=== PATIENT | female | born 1960 | race Caucasian/White ===

== ENCOUNTER 2018-12-08 07:25 | Outpatient (CLI) | payer BC ==
--- NOTE | 2018-12-08 08:39 | CT ---
CT Chest Abd Pelvis W Con HISTORY: Breast cancer diagnosed 2 weeks ago. Cancer staging. COMPARISON: None. FINDINGS: There are no pulmonary nodules identified there are some pleural-based parenchymal changes in the posterior portions of both upper lobes, this is appearance more suggestive of scarring along the fissures. No pleural effusions identified. No significant mediastinal, or hilar lymphadenopathy is seen. There are markedly enlarged right axill kim lymph nodes present. In addition there are a few small subcentimeter right supraclavicular nodes noted. CT of abdomen performed with contrast enhancement: The liver spleen pancreas and gallbla dder regions all appear unremarkable. Right and left adrenal glands and right and left kidneys are normal in size. Hypodensity involving th e lower pole the right kidney is most likely a cyst. There is no significant periaortic or mesenteric lymphadenopathy noted. CT of pelvis performed with contrast: There is no evidence of adenopathy, mass or free fluid. Osseous structures: There are no signs of any lytic or blastic bony changes. IMPRESSION: 1. Enlarged right axillary lymph nodes otherwise unremarkable examination.
== END 2018-12-08 07:26 | disposition home or self-care (01) ==
LOC: CT 07:25
PROVIDERS: ATTEND Surgery
DX: C77.9 Secondary and unspecified malignant neoplasm of lymph node, unspecified (principal); C80.1 Malignant (primary) neoplasm, unspecified; R59.0 Localized enlarged lymph nodes
CPT/HCPCS: 71260; 74177

== ENCOUNTER 2018-12-16 09:28 | Outpatient (CLI) | payer BC ==
--- NOTE | 2018-12-16 13:02 | NM ---
EXAM: Bone scan: Patient given 30 mCi of technetium labeled MDP IV. Whole body skeletal images obtained. INDICATIONS: Breast cancer COMPARISON: None. FINDINGS: Normal skeletal activity. No evidence of metastatic disease. IMPRESSION: Normal bone scan
== END 2018-12-16 09:29 | disposition home or self-care (01) ==
LOC: NM 09:28
PROVIDERS: ATTEND Surgery
DX: C77.9 Secondary and unspecified malignant neoplasm of lymph node, unspecified (principal); C80.1 Malignant (primary) neoplasm, unspecified
CPT/HCPCS: 36415; 78306; 80053; 82248; 83615; 84100; 84550; A9503

== ENCOUNTER 2018-12-21 13:41 | Outpatient (CLI) | payer BC | END 2018-12-21 13:42 | disposition home or self-care (01) | LOC: ULT 13:41 | PROVIDERS: ATTEND Internal Medicine Hematology & Oncology | DX: Z51.11 Encounter for antineoplastic chemotherapy (principal); C50.919 Malignant neoplasm of unspecified site of unspecified female breast; I08.1 Rheumatic disorders of both mitral and tricuspid valves; Z79.899 Other long term (current) drug therapy | CPT/HCPCS: 93306 ==

== ENCOUNTER 2018-12-22 07:33 | Outpatient (CLI) | payer BC ==
--- NOTE | 2018-12-22 15:04 | PET ---
EXAM: PET CT skull to mid thigh COMPARISON: CT chest abdomen pelvis 12/08/2018 HISTORY: Malignant neoplasm of the upper outer quadrant of right breast TECHNIQUE: A PET/CT was performed from the skull to the mid thigh after administration of 11.6 millic uries of F-18 FDG. Evaluation was performed on a [employer] workstation. FINDINGS: NECK: No areas of hypermetabolic activity CHEST: There are approximately 5 hypermetabolic lymph nodes in the right axilla and posterior to the pectoralis major muscle. Max SUV value is 5.0. These correspond to the enlarged lymph nodes seen on CT. No intrathoracic areas of hypermetabolic activity ABDOMEN/PELVIS: No areas of hypermetabolic activity SKELETON: No areas of hypermetabolic activity CT images used for attenuation correction show a Mediport with its tip in the superior vena cava.. IMPRESSION: Metastatic disease to the right axilla.
== END 2018-12-22 07:34 | disposition home or self-care (01) ==
LOC: PET 07:33
PROVIDERS: ATTEND Internal Medicine Hematology & Oncology
DX: C50.411 Malignant neoplasm of upper-outer quadrant of right female breast (principal); C76.1 Malignant neoplasm of thorax
CPT/HCPCS: 78815; A9552

== ENCOUNTER → 2021-04-17 | Outpatient (CLI) | payer BC | LOC: PET 09:30 | PROVIDERS: ATTEND Internal Medicine Hematology & Oncology | DX: C50.411 Malignant neoplasm of upper-outer quadrant of right female breast (principal); M89.9 Disorder of bone, unspecified | CPT/HCPCS: 78815; A9552 ==

== ENCOUNTER 2021-04-25 10:09 | Outpatient (CLI) | payer BC | END 2021-04-25 10:10 | disposition home or self-care (01) | LOC: NM 10:09 | PROVIDERS: ATTEND Internal Medicine Hematology & Oncology | DX: C50.411 Malignant neoplasm of upper-outer quadrant of right female breast (principal); C79.51 Secondary malignant neoplasm of bone | CPT/HCPCS: 78306; A9503 ==

== ENCOUNTER 2022-10-06 08:00 | Outpatient (CLI) | payer BC | END 2022-10-06 08:01 | disposition home or self-care (01) | LOC: PET 08:00 | PROVIDERS: ATTEND Internal Medicine Hematology & Oncology | DX: C50.411 Malignant neoplasm of upper-outer quadrant of right female breast (principal); C79.51 Secondary malignant neoplasm of bone; T38.6X5A Adverse effect of antigonadotrophins, antiestrogens, antiandrogens, not elsewhere classified, initial encounter | CPT/HCPCS: 78815; A9552 ==

== ENCOUNTER 2023-09-29 09:30 | Outpatient (CLI) | payer BC | END 2023-09-29 09:31 | disposition home or self-care (01) | LOC: PET 09:30 | PROVIDERS: ATTEND Internal Medicine Hematology & Oncology | DX: C50.411 Malignant neoplasm of upper-outer quadrant of right female breast (principal); C79.51 Secondary malignant neoplasm of bone | CPT/HCPCS: 78815; A9552 ==

== ENCOUNTER 2024-03-31 08:45 | Outpatient (CLI) | payer BC | END 2024-03-31 08:46 | disposition home or self-care (01) | LOC: PET 08:45 | PROVIDERS: ATTEND Internal Medicine Hematology & Oncology | DX: C50.411 Malignant neoplasm of upper-outer quadrant of right female breast (principal); C79.51 Secondary malignant neoplasm of bone; D70.1 Agranulocytosis secondary to cancer chemotherapy; T38.6X5A Adverse effect of antigonadotrophins, antiestrogens, antiandrogens, not elsewhere classified, initial encounter | CPT/HCPCS: 78815; A9552 ==

== ENCOUNTER 2024-09-27 08:00 | Outpatient (CLI) | payer BC | END 2024-09-27 08:01 | disposition home or self-care (01) | LOC: PET 08:00 | PROVIDERS: ATTEND Internal Medicine Hematology & Oncology | DX: C50.411 Malignant neoplasm of upper-outer quadrant of right female breast (principal); C79.51 Secondary malignant neoplasm of bone; D70.1 Agranulocytosis secondary to cancer chemotherapy; T38.6X5D Adverse effect of antigonadotrophins, antiestrogens, antiandrogens, not elsewhere classified, subsequent encounter | CPT/HCPCS: 78815; A9552 ==